=== PATIENT | female | born 2000 | race Two or more races ===

== ENCOUNTER 2024-06-03 08:15 | Inpatient (IN) | payer OTHER ==
[~2024-06-03] VITALS: Ht 154.9 cm; Wt 76.7 kg
[2024-06-03] MEDS ORDERED: PRENATAL TABLE1 EAC1 PO (11:39)
[2024-06-03 11:43] VITALS: BP 127/66
[2024-06-03 11:44] VITALS: BP 127/66
[2024-06-03] MEDS ORDERED: RINGERS SOLUTION,LACTATED 1,000 ML IV SCH (12:30)
[2024-06-03] MEDS ORDERED: OXYTOCIN 500 ML IV SCH (12:30)
[2024-06-03 13:13] LABS: URINE APPEARANCE Clear; URINE BILIRRUBIN Negative (NEGATIVE); URINE BLOOD Large; URINE COLOR Yellow; URINE GLUCOSE Negative (NEGATIVE); URINE KETONE Trace (NEGATIVE); URINE LEUKOCYTE Trace; URINE NITRATE Negative; URINE PROTEIN Negative (NEGATIVE); URINE UROBILINOGEN 0.2 E.U./dl
[2024-06-03 13:15] LABS: HEMATOCRIT 38.6 % (36.0-45.00); HEMOGLOBIN 13.5 g/dL (12.0-15.00); MEAN CELL VOLUME 84.9 fL (80.00-100.00); MEAN CORPUSCULAR HEMOGLOBIN 29.7 pg (27.00-32.0); PLATELET COUNT 215 K/uL (150-450); RED BLOOD COUNT 4.55 M/uL (4.00-6.00); RED CELL DISTRIBUTION WIDTH 13.8 % (11.5-14.5)
[2024-06-03 13:17] LABS: URINE BACTERIA 298.6 uL (0.0-1933); URINE EPITHELIAL CELLS 35.2 uL (0.0-38.8); URINE WBC 12.4 uL (0.0-23.2)
[2024-06-03 13:22] LABS: URINE CAST 0.29 uL (0.0-1.40)
[2024-06-03 13:33] LABS: INR 0.94; PARTIAL THROMBOPLASTIN TIME 26.8 SECONDS (22.0-34.0); PROTHROMBIN TIME 10.3 SECONDS (9.0-11.5)
[2024-06-03 13:57] LABS: BILIRUBIN TOTAL 0.33 mg/dL (0.3-1.2); CALCIUM 9.1 mg/dL (8.5-10.1); CREATININE SERUM 0.44 mg/dL (0.55-1.02); GFR 174.23; GLOBULINA 3.5 G/DL (2.4-3.5); POTASSIUM 4.13 mEq/L (3.5-5.1); TOTAL PROTEIN 6.5 gm/dL (6.4-8.2)
[2024-06-03 15:30] VITALS: BP 142/68
[2024-06-03] MEDS ORDERED: ACETAMINOPHEN 325 MG TABLET PO PRN (17:15)
[2024-06-03] MEDS ORDERED: ERYTHROMYCIN BASE OPHT 1GM EACH TUBE OP ONE (17:15)
[2024-06-03] MEDS ORDERED: OXYTOCIN 20 UNITS/1000ML RL PIGGYBAG IV ONE (17:15)
[2024-06-03] MEDS ORDERED: CHLORHEXIDINE GLUCONATE 120 ML BOTTLE TOP ONE (17:15)
[2024-06-03] MEDS ORDERED: OxyCODONE HCL/APAP UD (PERCOCET) PO PRN (17:15)
[2024-06-03 19:01] VITALS: BP 138/77
[2024-06-03 22:06] VITALS: BP 137/78
[2024-06-04 01:12] VITALS: BP 113/69
[2024-06-04 03:19] LABS: HEMATOCRIT 37.1 % (36.0-45.00); HEMOGLOBIN 12.8 g/dL (12.0-15.00); MEAN CELL VOLUME 86.1 fL (80.00-100.00); MEAN CORPUSCULAR HEMOGLOBIN 29.6 pg (27.00-32.0); MEAN CORPUSCULAR HGB CONC 34.4 g/dl (32.0-36.0); PLATELET COUNT 244 K/uL (150-450); RED BLOOD COUNT 4.31 M/uL (4.00-6.00); RED CELL DISTRIBUTION WIDTH 13.8 % (11.5-14.5)
[2024-06-04 08:00] VITALS: BP 129/79
[2024-06-04] MEDS ORDERED: BENZOCAINE/MENTHOL 90 ML BOTTLE TOP SCH (09:00)
[2024-06-04] MEDS ORDERED: HYDROCORTISONE 2.5% 30 GM TUBE RECTAL SCH (09:00)
[2024-06-04 16:00] VITALS: BP 125/80
[2024-06-05 01:19] VITALS: BP 131/78
[2024-06-05 08:43] VITALS: BP 122/79
== END 2024-06-05 15:17 | disposition home or self-care (01) | DRG 807 ==
LOC: LDR 11:33 → OB/GYN 18:39 → LDR 18:42 → OB/GYN 18:49
PROVIDERS: ADMIT Specialist; ATTEND Specialist
PROC: 10E0XZZ Delivery of Products of Conception, External Approach (ICD-10-PCS; principal; 2024-06-03)
PROC: 0W8NXZZ Division of Female Perineum, External Approach (ICD-10-PCS; 2024-06-03)
PROC: 0UQG7ZZ Repair Vagina, Via Natural or Artificial Opening (ICD-10-PCS; 2024-06-03)
PROC: 4A1HXCZ Monitoring of Products of Conception, Cardiac Rate, External Approach (ICD-10-PCS; 2024-06-03)
DX: O70.1 Second degree perineal laceration during delivery (principal); Z37.0 Single live birth; Z3A.37 37 weeks gestation of pregnancy; Z20.822 Contact with and (suspected) exposure to COVID-19